=== PATIENT | male | born 1960 | race African-American/Black ===

== ENCOUNTER → 2016-09-20 | Outpatient (CLI) | payer OTHER ==
[~2016-09-20] MED LIST: COQ-10100 MG PO; LIPITOR40 MG PO; LISINOPRIL10 MG PO; MEGA RED PO; MOBIC15 MG PO; ST JOSEPH ASPIR81 M1 PO; VITAMIN C250 M1 PO
--- NOTE | ~2016-09-20 | CR90 ---
[facility] A Service of [facility] & [facility] RADIOLOGY TEXT RESULTS PATIENT: ARDEN DUMONT LOCATION: [facility] : 56 UNIT #: [id number] AGE: [address]: NIKOLAY AARON MD SEX: M ORDER DR: [id number] [facility] [address] [place], [place] [address] [id number] O MR#: [id number] Acc #: [id number] NAME: ARDEN DUMONT : 1960 SEX: M STUDY DATE/TIME: 09/20/2016 13:03 UNIT: [facility] ROOM: STUDY DESCRIPTION: CR Elbow 2 View Lt Attending Physician: Nikoaly Aaron M.D. Referring Physician: Nikolay Aaron M.D. Ordering Physician: Nikolay Aaron M.D. Primary Care Physician: Nikolay Aaron M.D. MEDICAL IMAGING REPORT This report is preliminary unless electronic signature is present EXAM Left elbow 3 views, 09/20/2016 HISTORY Left elbow pain with movement for 1 week. FINDINGS 3 views of the elbow are submitted. Bony elements are intact. No fractures, foreign bodies or joint effusion. CONCLUSION Negative. Dictated by... Alejandro Odonnell M.D. THIS IS AN ELECTRONICALLY VERIFIED REPORT Alejandro Odonnell M.D. at 09/22/2016 3:10 PM KAYLEIGH/sari TD: 09/20/2016 22:26 JOB #: [id number] MEDICAL IMAGING REPORT Page 1 of 1 COPY
--- NOTE | ~2016-09-20 | CR230 ---
[facility] A Service of [facility] & [facility] RADIOLOGY TEXT RESULTS PATIENT: ARDEN DUMONT LOCATION: [facility] : 56 UNIT #: [id number] AGE: [address]: NIKOLAY AARON MD SEX: M ORDER DR: [id number] [facility] [address] [place], [place] [address] [id number] O MR#: [id number] Acc #: [id number] NAME: ARDEN DUMONT : 1960 SEX: M STUDY DATE/TIME: 09/20/2016 13:04 UNIT: [facility] ROOM: STUDY DESCRIPTION: CR Shoulder Min 2 View Rt Attending Physician: Nikolay Aaron M.D. Referring Physician: Nikolay Aaron M.D. Ordering Physician: Nikolay Aaron M.D. Primary Care Physician: Nikolay Aaron M.D. MEDICAL IMAGING REPORT This report is preliminary unless electronic signature is present EXAM Right shoulder 3 views, 09/20/2016 HISTORY Shoulder pain for 1 week. FINDINGS 3 views of the shoulder obtained. The examination shows calcifications distal to the acromion likely within the subacromial bursa or adjacent musculature. The glenohumeral joint proper appears normal. CONCLUSION Calcifications near the acromion which may represent calcific bursitis or tendinitis. Favor bursitis. Dictated by... Alejandro Odonnell M.D. THIS IS AN ELECTRONICALLY VERIFIED REPORT Alejandro Odonnell M.D. at 09/22/2016 3:10 PM Karen TD: 09/20/2016 22:28 JOB #: [id number] MEDICAL IMAGING REPORT Page 1 of 1 COPY
== END | disposition home or self-care (01) ==
LOC: CRAD 12:37
DX: M25.50 Pain in unspecified joint (principal); M79.2 Neuralgia and neuritis, unspecified; M25.811 Other specified joint disorders, right shoulder
CPT/HCPCS: 73030; 73070

== ENCOUNTER → 2016-10-22 | Day surgery (SDC) | payer OTHER ==
--- NOTE | ~2016-10-22 | OR ---
Unit #: [id number] #: [id number] Patient: ARDEN DUMONT [id number] [address] [place], [place] [address] [id number] O MR#: [id number] NAME: ARDEN DUMONT ROOM: Date of Procedure: 10/22/2016 Admission Date: 10/22/2016 Surgeon: Zach Aceves M.D. : 1960 Attending Physician: Zach Aceves M.D. Primary Care Physician: Judie Alegria M.D. OPERATIVE REPORT PREOPERATIVE DIAGNOSIS Colorectal cancer screening in an average-risk patient. PROCEDURE PERFORMED Colonoscopy up to cecum with excellent preparation and good visualization. POSTOPERATIVE DIAGNOSES The patient had completely normal examination throughout the entire colon. No mucosal abnormalities whatsoever were present. No polyps, diverticula or hemorrhoids were seen. RECOMMENDATIONS Repeat colonoscopy in 10 years. SEDATION USED MAC. DESCRIPTION OF PROCEDURE Following detailed explanation of the potential risks and complications of a colonoscopy, namely perforation, bleeding, complication related to sedation, the patient was brought to GI lab and laid in the left lateral decubitus position. A digital rectal examination was performed, which was normal. Lubricated tip of the Olympus video colonoscope was inserted through the anus and advanced under direct vision. The scope was then advanced and passed up to sigmoid into descending colon. No diverticula were seen this area. The scope tip was then navigated all the way up to cecum with visualization of the ileocecal valve and the appendiceal orifice. Preparation was excellent with good visualization and photodocumentation was obtained. Last several inches of the terminal ileum also visualized after intubation of the ileocecal valve and appeared normal. Successive segments of the colonic mucosa were examined upon withdrawal and appeared unremarkable. There being no polyps, mass lesions, AVMs, or diverticula. The patient did not have any hemorrhoids at anal verge. The scope was then withdrawn. The patient returned to the recovery area. He tolerated the procedure without any postprocedure complications. Dictated by... Ben Menchaca/clayton Unit #: [id number] #: [id number] Patient: ARDEN DUMONT TD: 10/23/2016 02:06 JOB #: [id number] CC: . OPERATIVE REPORT Page 1 of 1 X Zach Aceves MD PROCEDURE OPERATIVE NOTE
== END | disposition home or self-care (01) ==
LOC: COPS 08:16
DX: Z12.11 Encounter for screening for malignant neoplasm of colon (principal); I10 Essential (primary) hypertension
CPT/HCPCS: J2250